=== PATIENT | male | born 1990 | race African-American/Black ===

== ENCOUNTER 2023-09-14 18:46 | Emergency (ER) | payer OTHER, SELFPAY ==
[2023-09-14 18:59] VITALS: BP 208/120
[2023-09-14 22:43] VITALS: BP 176/110
[2023-09-14 22:57] VITALS: BMI 25.7
[2023-09-14 23:39] LABS: % Basophils 0.3 % (0-2); % Eosinophils 0.2 % (0-6); % Immature Granulocytes 0.2 % (0-0.5); % Lymphocytes 18.9 % (20.5-51.1); % Monocytes 8.8 % (1.7-9.3); % Neutrophils 71.6 % (42.2-75.2); Absolute Lymphocytes 1.7 10^3/uL (1.2-3.4); Absolute Monocytes 0.8 10^3/uL (0.1-0.6); Absolute Neutrophils 6.4 10^3/uL (1.4-6.5); Mean Corpuscular Hgb 32.6 pg (27.0-31.0); Mean Platelet Volume 10.3 fL (7.4-10.4); Nucleated Red Blood Cells % 0 % (-); Platelet Count 252 10^3/uL (130-400); Red Cell Dist. Width 12.6 % (11.5-14.5)
[2023-09-14] MEDS: TETRACAINE 0.5% OPHTHALMIC SOLUTION 1 DROP OPHTH (23:48)
[2023-09-14] MEDS: COLACE LIQUID 100 MG S (23:48)
[2023-09-14] MEDS: LOPRESSOR 5 MG IV (23:49)
[2023-09-14 23:53] VITALS: BP 155/92
[2023-09-14 23:54] LABS: ALT (SGPT) 63 U/L (0-50); AST (SGOT) 59 U/L (17-59); Albumin 4.7 g/dl (3.5-5.0); Alkaline Phosphatase 76 U/L (38-126); Blood Urea Nitrogen 14 mg/dl (9-20); Calcium 9.9 mg/dl (8.4-10.2); Carbon Dioxide 28 mmol/L (22-30); Chloride 97 mmol/L (98-107); Estimated Creatinine Clearance 108 ml/min; Glucose 106 mg/dl (70-99); Potassium 3.6 mmol/L (3.5-5.1); Sodium 136 mmol/L (135-145); Total Protein 7.8 g/dl (6.3-8.2); eGFR > 60.00
[2023-09-14 23:58] LABS: Urine Albumin Trace (Neg - Trace); Urine Bilirubin 1+ (Negative); Urine Character Clear (Clear); Urine Color Yellow; Urine Glucose Negative (Negative); Urine Ketone 2+ (Negative); Urine Leukocyte Negative (Negative); Urine Nitrite Negative (Negative); Urine Occult Blood Trace (Negative); Urine Urobilinogen Negative (Neg - 1+)
[2023-09-15] VITALS: BP 149/94
--- NOTE | 2023-09-15 00:31 | ED.GENMED ---
History of Present Illness
General
Chief Complaint: Blood Pressure Problem
Source: patient
Exam Limitations: none
Time Seen by Provider: 09/14/23 22:39
Nursing documentation reviewed up to this point in time: agreed with
Travel History
Have you had any contact with someone who has COVID-19?: No
Do you have any symptoms of coronavirus? Fever > 100 degrees, chills, cough, shortness of breath, sore throat, loss of taste or smell, muscle aches, or headache?: No
History of Present Illness
History of Present Illness:
This is a 33-year-old gentleman who was sent from his primary care physician's office due to elevated blood pressure. He does report moderately elevated blood pressure during routine office visit in July. Prior to July patient admits to
neglecting his own health care for a number of years. At that PCP office visit in July he was recommended to start a strict low-sodium diet with plan to recheck blood pressure in October.
He states outpatient blood work at that time showed mildly elevated cholesterol otherwise was unremarkable. He was started on atorvastatin with plan to recheck lipid panel and BP in October.
He complains of 2 to 3-week history of right ear discomfort and decreased hearing which prompted office visit today. He was noted to have cerumen occlusion along with elevated blood pressure and sent to the ED for further evaluation.
He denies fever nor chills, denies nasal congestion or sore throat, no cough nor shortness of breath, no chest pain, no headache, no dizziness nor lightheadedness.
Patient is adopted thus he has unknown family history.
He does admit to moderate anxiety since starting atorvastatin and was wondering if this was a side effect. He states routine thyroid function test in July were unremarkable as well.
He takes no other medications save for vapes marijuana.
Past History
Past History
ED Past Medical History: HTN, Hypercholesterolemia and Psychiatric (Anxiety)
ED Past Surgical History: Appendectomy
Social History
Tobacco: Vaping (Vapes nicotine as well as THC)
Alcohol: Daily (3 beers daily)
Drug: Marijuana
Personal: Single
Living: with family
Employment: Employed
Family History
Family History: Adopted
Phy Exam
Physical Exam
Physical Exam:
GENERAL: Alert , in no apparent distress. 33-year-old gentleman appears his stated age, bright and alert, pleasant, appears in no acute distress.
EYE: pupils equal and reactive. anicteric
NECK: Supple, nontender, no meningismus, no significant adenopathy.
ENT: posterior pharynx is clear, oral mucosa is moist. Right external ear canal impacted with cerumen. There is a scabbed superficial abrasion at the posterior canal entrance. Patient admits to inadvertently scratching his ear 2 to 3 days ago.
Left canal and TM are clear. Nares patent.
CARDIAC: Regular rate and rhythm. no murmur.
LUNGS: Clear breath sounds bilaterally, no acute respiratory distress, no wheezes/rales/rhonchi
ABDOMEN: Soft, nondistended, without focal tenderness, no r/g, no cvat. normoactive BS.
NEUROLOGICAL: Alert and oriented x3, no focal neuro deficits. Gait is steady.
SKIN: Warm and dry, normal color, skin intact. No rash.
MUSCULOSKELETAL: No C/C/E. peripheral pulses are full and equal b/l. No palpable tenderness.
PSYCH: Normal and appropriate interaction.
Course
Orders/Labs/Results
Orders:
Orders
09/14/23 19:04
Electrocardiogram (*1) Urgent
Reason for Study: Hypertension, Benign
EKG- Treatment ONCE
09/14/23 23:08
Metoprolol [Lopressor] 5 mg IV NOW STA
09/14/23 23:10
Tetracaine HCl [Tetracaine 0.5% Ophthalmic Solution] See Dose Instructions OPHTH ONCE ONE
09/14/23 23:27
CMP [Comprehensive Metabolic Panel] Urgent
Complete Blood Count/With Diff Urgent
09/14/23 23:29
Docusate Sodium [Colace Liquid] 100 mg S NOW STA
09/14/23 23:31
Urinalysis Reflex To Culture Urgent
Date Specimen was Collected: 09/14/23
Time Specimen was Collected: 23:29
Urine Microscopic Reflex Cult Urgent
Abnormal Lab Results
09/14/23 09/14/23
23:27 23:31
RBC 4.30 L 10^6/uL
(4.70-6.10)
MCH 32.6 H pg
(27.0-31.0)
Absolute Monos (auto) 0.8 H 10^3/uL
(0.1-0.6)
Lymphocytes % 18.9 L %
(20.5-51.1)
Chloride 97 L mmol/L
(98-107)
Glucose 106 H mg/dl
(70-99)
ALT 63 H U/L
(0-50)
Urine Ketones 2+ A
(Negative)
Ur Occult Blood Reflex Trace A
(Negative)
Urine Bilirubin 1+ A
(Negative)
09/14/23 23:27
09/14/23 23:27
Vital Signs
Initial and Last Documented VS:
Initial Vital Signs
Temp Pulse Resp BP Pulse Ox
97.8 F 90 18 208/120 100
09/14/23 18:59 09/14/23 18:59 09/14/23 18:59 09/14/23 18:59 09/14/23 18:59
Last Documented Vital Signs
Temp Pulse Resp BP Pulse Ox
97.8 F 69 13 155/92 91
09/14/23 18:59 09/14/23 23:53 09/14/23 23:53 09/14/23 23:53 09/14/23 23:56
Procedures
Foreign Body Removal-Ear
Right External canal:
Tenderness: mild
Any local drainage: none
External ear canal cleaned with removal of cerumen using: irrigation
Additional Information:
Right external ear canal prepped with tetracaine as well as Colace liquid.
Cerumen occlusion cleared with irrigation.
Post irrigation external canal is clear, TM is clear and intact.
He is noted to have superficial subacute abrasion at the entrance of right external auditory canal. Patient admits to self inflicted abrasion 2 to 3 days ago.
MDM/Problems Addressed
Differential Diagnosis Includes:
Patient presents with elevated blood pressure 208/120. Upon recheck 170/110.
Overall asymptomatic and he does report elevated blood pressure reading during routine PCP office visit in July but not to this degree.
I highly suspect patient has hypertension and likely will require initiation of an antihypertensive medication.
He also notes 2 to 3-week history of right ear discomfort and decreased hearing and is noted to have cerumen occlusion. Although appears comfortable, mild discomfort of his ear could be contributing factor to elevated blood pressure.
Will check labs, assess renal function, electrolytes. Will check urinalysis to assess for proteinuria. Will check EKG.
As patient has had no chest pain, no headache, no neurologic signs, no shortness of breath, no indication for radiologic studies.
Will give an IV dose of Lopressor for blood pressure.
Will plan to clear cerumen occlusion right external ear canal.
He does admit to some ongoing anxiety symptoms which I do not suspect related to atorvastatin. He admits to chronic THC use and I suspect an element of chronic anxiety/worry.
Anxiety does not appear to be affecting his day-to-day activities.
Chronic conditions affecting care: HTN
Acute Exacerbation and/or Progression of Chronic Illness: HTN
*Pulse Oximetry
Patient hypoxic: no
*EKG
Interpreted by ED Provider?: Yes
Interpretation: normal
Comparison EKG: no comparison EKG present
Rate: normal
Rhythm: sinus
[place]: normal axis
Interval: normal interval
QRS Pattern: normal QRS
Ischemia: no ischemia
*Head Kiln Operator Interpretation
Rate: normal
Interpretation: normal
Rhythm: sinus
*Critical Care Note
Total Time (30-74mins, 75-104mins- exclusive of procedures): Not Applicable
Update Note
Update Note:
Cerumen occlusion cleared with irrigation without difficulty.
Will add short course of Cortisporin otic suspension to assist with external canal abrasion and prevention of otitis externa.
Discussed importance of dry ear precautions and avoiding Q-tips.
Blood pressure has improved nicely to 140/90 after 1 IV dose of Lopressor.
Monitor continues to show normal sinus rhythm in the 70s.
Labs are unremarkable, normal renal function. ALT minimally elevated at 63, all other LFTs within normal limits.
Urinalysis shows +2 ketones, trace positive occult blood. Nitrite negative. Microscopic is pending.
Will discharge to home with prescription for metoprolol succinate for blood pressure and this may actually help with his anxiety symptoms as well.
Recommend prompt follow-up with PCP for recheck.
ED Attending Note
-
Portions of this chart may have been created with voice recognition software.� Occasional wrong word or��sound alike� substitutions may have occurred due to the inherent limitations of voice recognition software.
Discharge Plan
Departure
Patient Disposition: Home (Routine Discharge)
Date of Disposition: 09/15/23
Time of Disposition: 00:45
Patient with high blood pressure during this ER visit?: Yes
Condition: Fair
Discharge Problem:
Accelerated essential hypertension, Excessive cerumen in right ear canal
Instructions: High Blood Pressure (DC), Ear Wax Impaction (DC)
Prescriptions:
New
metoprolol succinate 25 mg tablet extended release 24 hr
25 mg PO DAILY Qty: 30 0RF
Cortisporin-TC 3.3-3-10-0.5 mg/mL drops,suspension
4 drp otic (ear) TID Qty: 10 0RF
No Action
atorvastatin 20 mg Tablet
20 mg PO DAILY
Referrals:
Taylor Paz MD [Family Provider] - Call in 1-3 days for appt
Interventions
Interventions:
*Risk Screen - Suicide Last Done: 09/14/23 18:59
*General Assessment Last Done: 09/14/23 22:43
*Neglect/Abuse Screening Last Done: 09/14/23 18:59
ED- Fall Risk Assessment Last Done: 09/14/23 22:43
*ED COVID-19 Vaccine History Last Done: 09/14/23 22:43
ED- Cardiac Assessment Last Done: 09/14/23 22:43
ED- Neurological Assessment Last Done: 09/14/23 22:43
ED- Pulmonary Assessment Last Done: 09/14/23 23:56
[2023-09-15 00:56] LABS: Urine Mucus Few
[2023-09-15 00:57] LABS: Urine Bacteria Few (Negative); Urine Red Blood Cell 0-2 /HPF (0-2); Urine Squamous Cell >30 /LPF (Few); Urine White Cell 0-2 /HPF (0-5)
[2023-09-15 00:58] VITALS: BP 142/97
== END 2023-09-15 01:11 | disposition home or self-care (01) ==
LOC: EMR 18:46
PROVIDERS: Emergency Medicine; EMERGENCY PHYSICIAN Emergency Medicine; FAMILY PHYSICIAN Internal Medicine
DX: H61.21 Impacted cerumen, right ear (principal); I10 Essential (primary) hypertension; F17.290 Nicotine dependence, other tobacco product, uncomplicated; F41.9 Anxiety disorder, unspecified
CPT/HCPCS: 99284; 96374; 80053; 81003; 81015; 85025; 93005

== ENCOUNTER 2025-03-16 00:34 | Emergency (ER) | payer OTHER, SELFPAY ==
[2025-03-16 00:49] VITALS: BP 154/79
[2025-03-16 02:28] VITALS: BP 144/88; BMI 25.7
[2025-03-16 03:00] VITALS: BP 138/79
[2025-03-16] MEDS: ADACEL 0.5 ML IM (03:08)
[2025-03-16 03:46] LABS: Hematocrit 39.6 % (39.0-52.0); Hemoglobin 13.7 g/dL (13.0-18.0); Mean Corp Hgb Conc. 34.6 g/dL (33.0-37.0); Mean Corpuscular Volume 88.0 fL (80.0-94.0); Nucleated Red Blood Cells % 0 % (-); Red Cell Dist. Width 12.4 % (11.5-14.5)
[2025-03-16 03:57] LABS: ALT (SGPT) 29 U/L (0-50); AST (SGOT) 27 U/L (17-59); Albumin 4.7 g/dl (3.5-5.0); Alkaline Phosphatase 75 U/L (38-126); Blood Urea Nitrogen 18 mg/dl (9-20); Calcium 9.6 mg/dl (8.4-10.2); Carbon Dioxide 26 mmol/L (22-30); Chloride 105 mmol/L (98-107); Estimated Creatinine Clearance 82 ml/min; Glucose 118 mg/dl (70-99); Potassium 4.4 mmol/L (3.5-5.1); Sodium 138 mmol/L (135-145); Total Protein 7.5 g/dl (6.3-8.2); eGFR > 60.00
[2025-03-16 04:16] LABS: Platelet Count 196 10^3/uL (130-400)
--- NOTE | 2025-03-16 04:20 | ED.GENMED ---
History of Present Illness
<ROGELIO Mcdaniels Jr. Last Filed: 03/17/25 07:29>
General
Chief Complaint: Skin Surface Trauma
Source: patient
Exam Limitations: none
Time Seen by Provider: 03/16/25 03:08
Nursing documentation reviewed up to this point in time: agreed with
History of Present Illness
History of Present Illness:
35-year-old male past medical history of hypertension hyperlipidemia, anxiety presenting to the emergency department today after episode where he felt lightheaded at home after consuming marijuana claims that he passed out after feeling lightheaded
hit his face on the plate that then broke and cut his left cheek and upper lip. Denies additional concerns no chest pain palpitations shortness of breath proceeding. Denies any history of heart disease. Unsure when his last tetanus shot was.
Past History
<Kam Gaspar Jr., PA-C - Last Filed: 03/17/25 07:29>
Past History
ED Past Medical History: HTN, Hypercholesterolemia and Psychiatric (Anxiety)
ED Past Surgical History: Appendectomy
Social History
Tobacco: Vaping (Vapes nicotine as well as THC)
Alcohol: Daily (3 beers daily)
Drug: Marijuana
Personal: Single
Living: with family
Employment: Employed
Family History
Family History: Adopted
Review of Systems
<ROGELIO Mcdaniels Jr. Last Filed: 03/17/25 07:29>
Review of Systems
Allergies reviewed?: Yes
All Other Systems: ROS reviewed and negative except as documented in HPI and ROS
Phy Exam
<ROGELIO Mcdaniels Jr. Last Filed: 03/17/25 07:29>
Physical Exam
Physical Exam:
GENERAL: Alert , in no apparent distress
EYE: pupils equal and reactive
NECK: Supple, no significant adenopathy.
ENT: 4 cm laceration to the left cheek, 2.5 cm laceration to the left upper lip at the vermilion border parallel to it. o/p clr, mmm.
CARDIAC: Regular rate and rhythm .
LUNGS: Clear breath sounds bilaterally, no acute respiratory distress, no wheezes/rales/rhonchi
ABDOMEN: Soft, without focal tenderness, no r/g, no cvat
NEUROLOGICAL: Alert and oriented, no focal neuro deficits
SKIN: Warm and dry, skin intact.
MUSCULOSKELETAL: No edema, well perfused.
PSYCH: Normal and appropriate interaction.
Course
<Kam Gaspar Jr., ROGELIO - Last Filed: 03/17/25 07:29>
Orders/Labs/Results
Orders:
Orders
03/16/25 02:54
Electrocardiogram (*1) Urgent
Reason for Study: Syncope
EKG- Treatment ONCE
Tetanus/Diphth/Acelpertussis [Adacel] 0.5 ml IM .ONCE ONE
03/16/25 03:21
Complete Blood Count/With Diff Urgent
Comprehensive Metabolic Panel Urgent
03/16/25 04:47
Lidocaine/Epinephrine/Tetracai [Let Topical Anesthetic Gel] 3 ml .ROUTE .STK-MED ONE
03/16/25 07:59
CR Finger(s)/thumb Min 2 Vw Rt Urgent
Comment:
Reason For Exam: fifth finger injury
Abnormal Lab Results
03/16/25
03:21
RBC 4.50 L 10^6/uL
(4.70-6.10)
MPV 10.9 H fL
(7.4-10.4)
Absolute Neuts (auto) 7.5 H 10^3/uL
(1.4-6.5)
Absolute Monos (auto) 0.7 H 10^3/uL
(0.1-0.6)
Neutrophils % 75.5 H %
(42.2-75.2)
Lymphocytes % 16.3 L %
(20.5-51.1)
Glucose 118 H mg/dl
(70-99)
03/16/25 03:21
03/16/25 03:21
Vital Signs
Initial and Last Documented VS:
Initial Vital Signs
Temp Pulse Resp BP Pulse Ox
98.7 F 115 16 154/79 96
03/16/25 00:49 03/16/25 00:49 03/16/25 00:49 03/16/25 00:49 03/16/25 00:49
Last Documented Vital Signs
Temp Pulse Resp BP Pulse Ox
98.7 F 89 14 138/79 98
03/16/25 00:49 03/16/25 03:15 03/16/25 03:15 03/16/25 03:00 03/16/25 04:22
<Perez Oates PA-C - Last Filed: 03/16/25 08:47>
Orders/Labs/Results
Orders:
Orders
03/16/25 02:54
Electrocardiogram (*1) Urgent
Reason for Study: Syncope
EKG- Treatment ONCE
Tetanus/Diphth/Acelpertussis [Adacel] 0.5 ml IM .ONCE ONE
03/16/25 03:21
Complete Blood Count/With Diff Urgent
Comprehensive Metabolic Panel Urgent
03/16/25 04:47
Lidocaine/Epinephrine/Tetracai [Let Topical Anesthetic Gel] 3 ml .ROUTE .STK-MED ONE
03/16/25 07:59
CR Finger(s)/thumb Min 2 Vw Rt Urgent
Comment:
Reason For Exam: fifth finger injury
Abnormal Lab Results
03/16/25
03:21
RBC 4.50 L 10^6/uL
(4.70-6.10)
MPV 10.9 H fL
(7.4-10.4)
Absolute Neuts (auto) 7.5 H 10^3/uL
(1.4-6.5)
Absolute Monos (auto) 0.7 H 10^3/uL
(0.1-0.6)
Neutrophils % 75.5 H %
(42.2-75.2)
Lymphocytes % 16.3 L %
(20.5-51.1)
Glucose 118 H mg/dl
(70-99)
03/16/25 03:21
03/16/25 03:21
Vital Signs
Initial and Last Documented VS:
Initial Vital Signs
Temp Pulse Resp BP Pulse Ox
98.7 F 115 16 154/79 96
03/16/25 00:49 03/16/25 00:49 03/16/25 00:49 03/16/25 00:49 03/16/25 00:49
Last Documented Vital Signs
Temp Pulse Resp BP Pulse Ox
98.7 F 89 14 138/79 98
03/16/25 00:49 03/16/25 03:15 03/16/25 03:15 03/16/25 03:00 03/16/25 04:22
<Kam Gaspar Jr., PA-C - Last Filed: 03/17/25 07:29>
MDM/Problems Addressed
MDM/Problems Addressed:
35-year-old male presenting to the emergency department today with concerns of laceration to his left cheek and upper lip after syncopized and hitting his face on a plate that then broke. Otherwise he felt lightheaded prior and did consume
marijuana prior. On arrival he was slightly tachycardic but improved without specific treatment. Labs unremarkable EKG normal. Syncopal episode does not appear to be consistent with any life-threatening cause.
Plastic on-call Dr. Gil was contacted who is willing to come in to repair the patient's lacerations for optimal cosmetic outcome.
<Kam Gaspar Jr., PA-C - Last Filed: 03/17/25 07:29>
*Pulse Oximetry
SaO2: 98
Oxygen Mode of Delivery: Room air
<Perez Oates PA-C - Last Filed: 03/16/25 08:47>
*Pulse Oximetry
Patient hypoxic: no
*Critical Care Note
Total Time (30-74mins, 75-104mins- exclusive of procedures): Not Applicable
<Perez Oates PA-C - Last Filed: 03/16/25 08:47>
Update Note
Update Note:
0755: Dr Gil completed suture closure of wounds. Pt notes he has pain and swelling to R 5th finger, will obtain XR.
0825: XR negative by my interpretation. Pt will be d/c, plastics f/u in 1 week
ED Attending Note
<Kam Gaspar Jr., PA-C - Last Filed: 03/17/25 07:29>
-
Portions of this chart may have been created with voice recognition software.� Occasional wrong word or��sound alike� substitutions may have occurred due to the inherent limitations of voice recognition software.
Discharge Plan
Departure
Patient Disposition: Home (Routine Discharge)
Date of Disposition: 03/16/25
Time of Disposition: 08:21
Patient with high blood pressure during this ER visit?: No
Discharge Problem:
Complex laceration of face, Sprain of finger, right
Instructions: Laceration Repair With Stitches (DC)
Prescriptions:
No Action
atorvastatin 20 mg Tablet
20 mg PO DAILY
metoprolol succinate 25 mg tablet extended release 24 hr
25 mg PO DAILY Qty: 30 0RF
Cortisporin-TC 3.3-3-10-0.5 mg/mL drops,suspension
4 drp otic (ear) TID Qty: 10 0RF
Referrals:
ALVARO,NHUNG HERMINIA, CHIQUIS [Family Provider, Family Practice]
Alexis Gil DO [Active, Plastic Surgery]
Activity Restrictions/Additional Instructions:
Antibiotic ointment (bacitracin) to the wounds twice daily
Follow up with Dr Gil in 1 week for removal of sutures
Interventions
Interventions:
*Risk Screen - Suicide Last Done: 03/16/25 00:49
*General Assessment Last Done: 03/16/25 02:29
*Neglect/Abuse Screening Last Done: 03/16/25 00:49
*ED- Fall Risk Assessment Last Done: 03/16/25 00:49
*ED COVID-19 Vaccine History Last Done: 03/16/25 00:49
*Nursing Disposition Last Done: 03/16/25 08:30
ED-Skin Assessment Last Done: 03/16/25 02:42
Discharge Date and Time
Discharge Date/Time: 03/16/25 08:30
Print Language: [id number]
== END 2025-03-16 08:30 | disposition home or self-care (01) ==
LOC: EMR 00:34
PROVIDERS: Emergency Medicine; EMERGENCY PHYSICIAN Emergency Medicine; FAMILY PHYSICIAN Nurse Practitioner Family
DX: S01.412A Laceration without foreign body of left cheek and temporomandibular area, initial encounter (principal); S01.511A Laceration without foreign body of lip, initial encounter; S63.616A Unspecified sprain of right little finger, initial encounter; W19.XXXA Unspecified fall, initial encounter; Z23 Encounter for immunization; I10 Essential (primary) hypertension; E78.00 Pure hypercholesterolemia, unspecified; F41.9 Anxiety disorder, unspecified; F17.290 Nicotine dependence, other tobacco product, uncomplicated; Z90.49 Acquired absence of other specified parts of digestive tract
CPT/HCPCS: 99283; 12011; 13131; 90471; 73140; 80053; 85025; 90715; 93005